=== PATIENT | male | born 1990 | race Caucasian/White ===

== ENCOUNTER 2024-12-29 09:50 | Emergency (ER) | payer BC ==
[~2024-12-29] VITALS: Ht 167.6 cm; Wt 93.0 kg
[2024-12-29 10:02] VITALS: O2SAT 99
[2024-12-29 10:49] LABS: BASOPHILS % 0.6 % (0.0-2.0); EOSINOPHILS % 2.8 % (0.0-5.0); HEMATOCRIT. 41.5 % (42.0-52.0); LYMPHOCYTES % 7.3 % (20.0-50.0); MEAN CORPUSCULAR HEMOGLOBIN 28.2 pg (28.0-32.0); MEAN CORPUSCULAR HGB CONC 33.8 g/dL (31.0-37.0); MEAN CORPUSCULAR VOLUME 83.5 fL (80.0-94.0); NEUTROPHILS % 83.3 % (40.0-76.0); PLATELET 323 x1000/uL (130-400); RED BLOOD CELL COUNT 4.97 mill/uL (4.7-6.1); RED CELL DISTRIBUTION WIDTH 13.1 % (11.6-14.6)
[2024-12-29 10:57] LABS: CHLORIDE 104 mEq/L (98-107); SODIUM 142 mEq/L (136-145)
[2024-12-29 10:58] LABS: CARBON DIOXIDE 27 mEq/L (21-32)
[2024-12-29 11:04] LABS: CREATININE 0.9 mg/dL (0.6-1.3); GLUCOSE 104 mg/dL (70-105); UREA NITROGEN BLOOD 11 mg/dL (9-23)
[2024-12-29 11:05] LABS: ALANINE AMINOTRANSFERASE 44 IU/L (10-49); ALBUMIN 4.5 g/dL (3.2-4.8); ASPARTATE AMINOTRANSFERASE 33 IU/L (<34); TROPONIN I HIGH SENSITIVITY < 4 ng/L (3.0-53)
[2024-12-29 11:06] LABS: BILIRUBIN TOTAL 0.6 mg/dL (0.1-1.0); PROTEIN TOTAL 8.2 g/dL (6.0-8.3)
[2024-12-29 11:24] LABS: CALCIUM 10.2 mg/dL (8.7-10.4)
[2024-12-29] MEDS: LIDOCAINE 5% PATCH TOP SCH (11:26)
[2024-12-29] MEDS: KETOROLAC 30MG/ML VIAL IM ONE (11:29)
[2024-12-29] MEDS ORDERED: BROM118S47 PO (11:38)
[2024-12-29] MEDS ORDERED: OXYM30SP26 BOTHNSTRLS (11:38)
[2024-12-29] MEDS ORDERED: IBUP-2029 MT (11:38)
[2024-12-29] MEDS ORDERED: LIDO700A30 TP (11:38)
[2024-12-29 11:55] VITALS: BP 138/89; PULSE 77; RESP 18; TEMP 37.1; O2SAT 99
== END 2024-12-29 11:55 | disposition home or self-care (01) ==
LOC: ER 09:50
DX: J06.9 Acute upper respiratory infection, unspecified (principal); Z79.899 Other long term (current) drug therapy
CPT/HCPCS: 99285; 71045; 80053; 85025; 84484; 36415; 93005; J1885